=== PATIENT | female | born 1995 | race Caucasian/White ===

== ENCOUNTER 2020-06-15 08:16 | Emergency (ER) | payer OTHER, SELFPAY ==
[2020-06-15 08:17] VITALS: BP 139/59; PULSE 76; RESP 16; TEMP 36.3; O2SAT 99; BMI 28.0
--- NOTE | 2020-06-15 08:45 | VDLE_ITS ---
Reason For Study: Swelling Procedure LEFT Exam performed portable in ED. GSV is normal. A preliminary report was called and/or faxed CFV is compressible, spontaneous, phasic, to [place]. competent, and demonstrates normal augmentation. FV is compressible, spontaneous, phasic, competent and demonstrates normal augmentation. POP V is compressible, spontaneous, phasic, competent and demonstrates normal augmentation. T/P Trunk is compressible. PTV is compressible. LT PerV is compressible. Interpretation Summary There is no evidence of left lower extremity deep vein thrombosis. Left great saphenous vein appears patent and compressible segmentally. Ordering Physician: Lázaro Caba Performed By: Alis Holland RVT
--- NOTE | 2020-06-15 08:46 | ED.VISSUMM ---
- ER Visit Summary Date of Service: 06/15/20 Chief Complaint: [] History of Present Illness: The patient is a 25 F [] Physical Examination: [] Test Results: [] Emergency Department Course and Treatment: [] Treatment Plan: [] Disposition: [] Impression: [] This note was generated with [employer] dictation software. It may contain incorrect words, spelling, and punctuation that were not noted in review of the chart prior to signing
--- NOTE | 2020-06-15 09:15 | ED.VIS.GEN ---
History of Present Illness Chief Complaint: Numb/Ting Narrative: 25-year-old female with no reported medical problems presents with intermittent numbness and tingling of her left upper extremity and left lower extremity. She states that do not coincide together. She states she does work out regularly. She is also a nurse. She notes that the tingling in her left upper extremity is only in the mid forearm and its intermittent. It does not hurt. She is had no trauma. It is not numb or tingling today. There is no rash that she is noted. Her left lower extremity is tender to palpation behind the knee and into the upper calf. She does not note any swelling a but usually wears leg compression. DVT/PE risk factors. No history of DVT/PE. Past Medical History - Allergies and Home Meds Allergies/Adverse Reactions: Allergies No Known Allergies Allergy (Verified 06/15/20 08:18) Primary Care Physician: Care Physician,No Primary [Primary Care Provider] - Prior records reviewed: Yes Past Medical History: None Smoking Status: Never smoker Review of Systems General: Denies: Chills, Fever, Sweats Eyes: Denies: Visual changes - bilaterally, Diplopia ENT: Denies: Rhinorrhea, Sore throat Cardiovascular: Denies: Chest pain, Palpitations Respiratory: Denies: Dyspnea, Cough, Dyspnea on exertion Gastrointestinal: Denies: Abdominal pain, Nausea, Vomiting, Diarrhea, Melena, Hematochezia Musculoskeletal: Reports: Extremity Pain - Pain and swelling behind the left knee Skin: Denies: Rash, Abscess Neurological: Reports: - - Mitten tingling sensation behind the left knee and left lower leg as well as the left upper extremity on the mid forearm Physical Exam Vital Signs/Narrative: Vital Signs Temp Pulse Resp BP Pulse Ox 06/15/20 08:17 97.3 F L 76 16 139/59 H 99 General: Well nourished, No Acute Distress Head: Normocephalic Cardiovascular: Regular rate Respiratory: No distress Extremities: - - Tenderness to palpation posterior to the left knee. There is no rash or bruising. The calf compartments are soft. Motor is intact throughout. Left upper extremity examination shows full range of motion at the left shoulder left elbow left wrist without limitation or pain elicited. Sensation is intact. Roopa and brachial pulse 2+. Desmond's test normal. Negative Tinel sign. Skin: Normal color, No rash Neurological: Alert, Oriented x3 Psychological: Normal affect Diagnostic/Tx/Re-eval - Medical Decision Making Presents with intermittent paresthesias in the left upper extremity left forearm as well as pain and swelling as well as some numbness and tingling in the left lower extremity mostly behind the knee. On physical exam her left upper extremity has normal motor and sensation. She is not having any symptoms in this arm. She does have some tenderness behind her left knee and into her left calf. Her compartments are soft. Patient is concerned for DVT. Ultrasound was performed which shows no DVT or other acute process. Patient was a work note for today which was provided. Patient is discharged home in stable condition Impression: #1 left knee pain #2 left leg paresthesia 3. Left arm paresthesia ED Disposition - Plan for ED Patient: Disposition: Home or Assisted Living Instructions: ED Muscle Pain Leg Cramps, ED Paraesthesias Referrals: Care Physician,No Primary [Primary Care Provider] -
[2020-06-15 10:00] VITALS: BP 112/74; PULSE 65; RESP 20
== END 2020-06-15 10:01 | disposition home or self-care (01) ==
PROVIDERS: Emergency Provider Student in an Organized Health Care Education/Training Program
DX: M25.562 Pain in left knee (principal); R20.2 Paresthesia of skin; R20.0 Anesthesia of skin
CPT/HCPCS: 93971; 99283; A4216

== ENCOUNTER → 2021-05-09 10:50 | Outpatient (CLI) | payer MEDICARE, SELFPAY | DX: Z03.818 Encounter for observation for suspected exposure to other biological agents ruled out (principal) | CPT/HCPCS: 87635; U0005; U0003 ==

== ENCOUNTER 2024-02-28 19:13 | Inpatient (IN) | payer MEDICAID, SELFPAY ==
[2024-02-28 19:27] VITALS: BP 138/90; PULSE 82; RESP 16; TEMP 37.4
[2024-02-28] MEDS: Lactated Ringers 1,000 ML 50 ML IV (19:30)
[2024-02-28 19:32] VITALS: BMI 34.6
[2024-02-28 19:49] LABS: Absolute Lymphocyte Count 1.96 X10^3/uL (0.83-4.51); Absolute Neutrophil Count 6.3 X10^3/uL (2.0-7.7); Basophil# 0.05 X10^3/uL; Basophil% 0.6 % (0-1); Eosinophil# 0.06 X10^3/uL; Eosinophils% 0.7 % (0-5); Hematocrit 30.6 % (37-47); Hemoglobin 10.5 g/dL (12.0-15.0); Lymphocyte # 1.96 X10^3/ul (0.83-4.51); Lymphocyte % 21.7 % (19-41); Mean Corp Hgb Conc 34.3 g/dL (32-36); Mean Corpuscular Hgb 28.9 pg (27.0-32.0); Mean Corpuscular Volume 84.3 fL (81-99); Monocyte% 6.6 % (0-10); NRBC Flagged by Analyzer 0 % (0-5); Neutrophil # 6.34 X10^3/uL (2.7-7.7); Neutrophil % 70.1 % (47-70); Platelet Count 250 K/mm3 (150-450); RBC Distribution Width CV 13.9 % (11.6-14.6); Red Blood Count 3.63 M/mm3 (4.2-5.4)
--- NOTE | 2024-02-28 20:10 | PCM.HP.OB ---
HPI - General General Date of Admission: 02/28/24 HPI Narrative YANET MONDRAGON, is a 28 F who presents at 41 weeks, with LAURA 02/21/24 for postdates induction of labor. Maternal Data Information LAURA Calculator Estimated Delivery Date Method Current WG Current Estimate 02/21/24 Manual 41w 0d PFSH PFSH Home Medications vit no.133-ferrous fumarate 28 mg-folic acid 800 mcg tablet () 1 tab PO DAILY 02/28/24 [History Last Taken 02/28/24 08:30 1 TAB] Allergy/AdvReac Type Severity Reaction Status Date / Time No Known Allergies Allergy Verified 02/28/24 19:29 Surgical History (Updated 02/28/24 @ 19:35 by Makenna Canales) History of surgery Social History Smoking Status: Never smoker History Elective abortions Hx Para 0 Spontaneous abortions Hx # Term Pregnancies Ectopic pregnancies Hx # Pregnancies Multiple births # of living children NST FHR Rate Baby A Baseline: 130 Variability:: Moderate Accelerations:: 15 x 15 Decelerations:: None FHR Category:: Category I Uterine Activity:: None ROS Constitutional Constitutional: Reports systems reviewed and no addt'l complaints, except as documented; Denies headache(s) Eyes Eyes: Denies acute decrease in peripheral vision, blurry vision or change in vision ENT HEENT: Reports systems reviewed and no addt'l complaints, except as documented Cardiovascular Cardiovascular: Denies chest pain or dizziness Respiratory/Chest Respiratory/Chest: Denies cough, dyspnea, dyspnea on exertion, shortness of breath at rest or shortness of breath with exertion Gastrointestinal Gastrointestinal: Denies abdominal pain, diarrhea, nausea or vomiting Genitourinary Genitourinary: Denies abdominal discomfort Musculoskeletal Musculoskeletal: Denies limited range of motion Integumentary Integumentary: Reports systems reviewed and no addt'l complaints, except as documented Neurologic Neurologic: Reports systems reviewed and no addt'l complaints, except as documented Psychiatric Psychiatric: Reports systems reviewed and no addt'l complaints, except as documented Endocrine Endocrinology: Reports systems reviewed and no addt'l complaints, except as documented Hematologic/Lymphatic Hematologic/Lymphatic: Reports systems reviewed and no addt'l complaints, except as documented Allergic/Immunologic Allergic/Immunologic: Reports systems reviewed and no addt'l complaints, except as documented Vital Signs Vital Signs Vital Signs: 02/28/24 19:27 02/28/24 19:27 02/28/24 19:27 Temperature Temperature Source Temporal Pulse Rate 82 Respiratory Rate Blood Pressure 138/90 H BP Systolic 138 BP Diastolic 90 02/28/24 19:27 02/28/24 19:27 Temperature 99.3 F H Temperature Source Pulse Rate Respiratory Rate 16 Blood Pressure BP Systolic BP Diastolic Weight Weight: 195 lb 5.273 oz Body Mass Index (BMI) 34.6 Physical Exam Const alert and oriented x3 General Appearance: cooperative Orientation / Consciousness: awake, oriented to person, oriented to place and oriented to time Exam Limitations: no limitations HEENT normocephalic Head and Scalp: normal to inspection, normocephalic and atraumatic Face and Sinus: normal facial exam Eyes General Eye: normal appearance of both eyes Neck full ROM Chest Chest: symmetrical chest wall rise Resp normal respiratory effort and normal air movement Auscultation: clear to auscultation bilaterally Cardio regular rate, regular rhythm, S1 normal heart sound, S2 normal heart sound, no murmurs, no rub, no gallops and no clicks GI normal to inspection, nondistended, normoactive bowel sounds and non-tender appearance of the vagina normal Narrative: 0.5cm/50%/-2. Sanchez catheter instilled through cervix with stylus and instilled with 30ml NS. Patient tolerated well. Bladder / Kidney Exam: no CVA tenderness Back/Spine normal ROM Extremity normal to inspection and full ROM Skin no rashes or lesions noted Neuro oriented x3, CN's II-XII intact bilaterally and moves all extremities Sensorium / Orientation: awake, alert and oriented to person Motor Exam: clonus absent Deep Tendon Reflexes: Rt Patellar (L4): 2+ and Lt Patellar (L4): 2+ Labs Labs Labs: Blood Type Pending Antibody Screen NEGATIVE Hct 30.6 % (37-47) L Hgb 10.5 g/dL (12.0-15.0) L Syphilis Total Ab Pending GBS negative RPR non reactive GC/CT negative HIV negative HBsAG negative HepC negative Rubella equivocal Assessment & Plan (1) Post-dates : (2) Encounter for induction of labor: (3) 41 weeks gestation of : PLAN: Plan 1) Admit to labor and delivery 2) Routine labs 3) Sanchez with PO cytotec 4) Pain management upon request 5) collaborative physician, notified of patient status and of above assessment and plan.
[2024-02-28] MEDS: 0.9% Normal Saline Single 100 ML IV.SOLN. INTRA-UTER (20:33)
[2024-02-28 21:17] LABS: Syphilis Antibodies Non-reactive
[2024-02-28] MEDS: miSOPROStol 25 MCG TABLET PO (22:30)
[2024-02-28 22:31] VITALS: RESP 16; TEMP 36.8
[2024-02-28 22:32] VITALS: BP 133/80; PULSE 67; O2SAT 99
[2024-02-29] VITALS (91 sets, daily range): BP systolic 102–170; BP diastolic 53–95; PULSE 58–120; RESP 14–16; TEMP 36.3–37.9; O2SAT 84–100
--- NOTE | 2024-02-29 | PLAC_PTH ---
PATIENT: YANET MONDRAGON LOC: [facility] U#:[id number] AGE/SX: 28/F ROOM: [facility] RE02/28/[address]: Dr. Latia To MD : 1995 BED: 1 DIS: 03/02/2024 SPEC #: [id number] RECD: 03/01/24 08:01 STATUS: KALYN REKorey #: [id number] DARYA: 02/29/24 00:[address]: Tracey Aclala DEPT: SURGICAL PATHOLOGY RECD BY: Heron Perez ENTERED: 03/01/24 08:01 SP TYPE: PLACENTA OTHR DR: No Primary Care Phys Tissues: Placenta, NOS Procedures: Surgery Specimen Level V HEADER OPERATION: section PRE-OP DIAGNOSIS: Delivery TISSUE SUBMITTED: Placenta MICROSCOPIC DIAGNOSIS Placenta: Placental disc - third trimester placenta (486 gm). - Marked acute vasculitis of subamniotic blood vessels. Membranes - Marked acute chorioamnionitis. Umbilical cord - three blood vessels and marked acute funisitis. SJ: 03/03/24 MICROSCOPIC DESCRIPTION Slides are reviewed. GROSS DESCRIPTION SPECIMEN: PLACENTA / CLINICAL INFORMATION: A. Weight: 3.345 kg B. Gestational Age: 41 weeks C. Sex: Male PLACENTAL WEIGHT (POST FIXATION): 486 gm PLACENTAL DIMENSIONS: 17.0 x 15.0 x 4.0 cm PLACENTAL SHAPE: Usual ovoid PLACENTAL WEIGHT FOR GESTATIONAL AGE: Within 10-99th percentile MEMBRANES - Present A. Insertion: Marginal B. Site of rupture from edge: 7.0 cm from the margin of placental disc C. Color of membrane: Sprague-greenish and mucoidy, consistent with meconium staining D. Abnormalities: None UMBILICAL CORD - Present A. Color: Sprague-scott B. Insertion: Paracentral C. Length: 34.0 cm D. Diameter: 1.5 cm E. Number of vessels: Three F. Abnormalities: None PLACENTAL DISC - Present A. Color of surface: Sprague-scott B. surface abnormalities: None C. Maternal cotyledons: Intact with minimal tears D. Attached retro placental clot: No clot E. Cut surface: Dark red and spongy F. Lesions: None G. Separate clot: Absent SECTIONS SUBMITTED: 1. Membrane roll 2. Cord, maternal end 3. Cord, end 4. Placental disc, and maternal surfaces 5. Placental disc, and maternal surfaces 6. Placental disc, and maternal surfaces / 03/02/2024 TC:2 CPT: 93594
[2024-02-29] MEDS: Oxytocin 15 Units/NS 250ml 15 UNITS/250 ML IV.SOLN 2 UNITS IV (03:00)
[2024-02-29] MEDS: LACTATED RINGERS 500 ML 999 ML IV ×4 (07:10→20:05)
[2024-02-29] MEDS: fentaNYL-bupivacaine (epidural) 100 ML BAG EPIDURAL ×3 (07:32→20:39)
[2024-02-29] MEDS: Lactated Ringers 1,000 ML 200 ML IV ×3 (11:09→22:57)
[2024-02-29] MEDS: Ondansetron 4 MG/2 ML Vial IV (12:11)
--- NOTE | 2024-02-29 12:58 | PCM.PN.OB ---
Subjective Subjective Small area of pain despite epidural in RLQ. Unable to pass IUP. 4 cm. Pit is off currently because of pain. CAT 1-2 Objective Data Objective Data Vital Signs: Vital Signs Temp Pulse Resp BP Pulse Ox 97.9 F 68 16 148/91 H 98 02/29/24 11:51 02/29/24 12:39 02/29/24 12:39 02/29/24 12:39 02/29/24 12:39 Weight: 88.6 kg Body Mass Index (BMI) 34.6 Intake & Output: Intake and Output for Last 24 Hours 02/27/24 02/28/24 02/29/24 23:59 23:59 23:59 Intake Total 50 / 50 1277.57 / 1277.57 Output Total 550 / 550 Balance 50 / 50 727.57 / 727.57 Lab / Micro Data 02/28/24 19:30 Labs: Laboratory Results - last 24 hr 02/28/24 19:30: WBC 9.0, RBC 3.63 L, Hgb 10.5 L, Hct 30.6 L, MCV 84.3, MCH 28.9, MCHC 34.3, RDW Std Deviation 43.0, RDW Coeff of Bryanna 13.9, Plt Count 250, MPV 13.0 H, Immature Gran % (Auto) 0.300, Neut % (Auto) 70.1 H, Lymph % (Auto) 21.7, Ziebach % (Auto) 6.6, Eos % (Auto) 0.7, Baso % (Auto) 0.6, Absolute Neuts (auto) 6.3, Absolute Lymphs (auto) 1.96, Nucleated RBC % 0, Syphilis Total Ab Non-reactive, Antibody Screen NEGATIVE Assessment & Plan (1) 41 weeks gestation of : (2) Encounter for induction of labor:
--- NOTE | 2024-02-29 23:01 | NURSING ---
per ludy RN, she DC ignacio cath around 1729 due to pt pain. this RN replaced ignacio cath to drain bladder per provider request at 2052. blood tinged urine draining. pt tolerating cath at this time.
--- NOTE | 2024-02-29 23:17 | PCM.PN.OB ---
Subjective Subjective Cervix unchanged. 5/80/-3. Contractions q2-3. Patient declines further trial of labor Consent for primary c/s reviewed risks and benefits of c/s vs continue labor. Objective Data Objective Data Vital Signs: Vital Signs Temp Pulse Resp BP Pulse Ox 99.8 F H 114 H 16 141/77 H 98 02/29/24 22:51 02/29/24 22:51 02/29/24 22:51 02/29/24 22:51 02/29/24 22:50 Weight: 88.6 kg Body Mass Index (BMI) 34.6 Intake & Output: Intake and Output for Last 24 Hours 02/27/24 02/28/24 02/29/24 23:59 23:59 23:59 Intake Total 50 / 50 5036.26 / 5036.26 Output Total 900 / 900 Balance 50 / 50 4136.26 / 4136.26 Lab / Micro Data 02/28/24 19:30 NST FHR Rate Baby A Baseline: 155 Variability:: Moderate Accelerations:: 15 x 15 Decelerations:: Variable FHR Category:: Category II Assessment & Plan (1) 41 weeks gestation of : (2) Encounter for induction of labor: (3) Failed induction of labor:
[2024-02-29] MEDS: Sodium Citrate/Citric Acid 30 ML UDC PO (23:18)
[2024-02-29] MEDS: Acetaminophen 500 MG Tablet PO (23:18)
[2024-02-29] MEDS: Cefazolin 2 GM in 0.9% Normal Saline (100mL Bag) 100 ML IV (23:50)
[2024-02-29] MEDS: Azithromycin 500 MG in Dextrose 5%-Water (250mL Bag) 250 ML 250 MG IV (23:50)
[2024-03-01] VITALS (25 sets, daily range): BP systolic 114–154; BP diastolic 53–100; PULSE 83–104; RESP 12–19; TEMP 36.5–37.7; O2SAT 91–97
[2024-03-01] MEDS: Methylergonovine 0.2 MG/ML Ampul IM (00:30)
[2024-03-01] MEDS: Oxytocin 15 Units/NS 250ml 15 UNITS/250 ML IV.SOLN 83 UNITS IV (00:41)
--- NOTE | 2024-03-01 01:06 | EX.PCM.OBRPT ---
Assessment & Plan (1) Failed induction of labor: QUALIFIERS: Failed induction of labor type: unspecified Qualified Code(s): O61.9 - Failed induction of labor, unspecified (2) 41 weeks gestation of : (3) Encounter for induction of labor: (4) Delivery by section: Maternal Data Information LAURA Calculator Estimated Delivery Date Method Current WG Current Estimate 02/21/24 Manual 41w 2d Final LAURA: 02/21/24 Gestational age: 41+2 Doctor Who Attended Delivery: Nolan Dewey Details Operative Information Date of Procedure: 02/29/24 Pre-Operative Diagnosis: IOL at 41 weeks, Failure to progress Post-Operative Diagnosis: Same, meconium Indications for : Failure to Progress Indications Narrative: Sanchez bulb IOL. ROM with Sanchez placement. Progressed to 5 cm but made no further change. High station and meconium stained fluid. Difficult pain management with epidural. Redosed multiple times and replaced Classification: NEWTON Procedure Type: low transverse accounts adjustable clerk #1: Kami Raines Type of Anesthesia: Epidural and General Anesthesiologist: Bashir Joseph Antibiotic Given: Ancef 2 grams IV x1 and Zithromax 500 mg/5 mL X1 Drain: Sanchez to straight drain Estimated Blood Loss: 500 cc Fluids Replaced: 1000 Procedure Start Time: 23:52 Procedure Stop Time: 00:35 Time of Delivery: 23:54 Findings Description of Procedure: Patient consented to primary c/s for failure to progress. She was taken to the OR with epidural and Sanchez in place. She was placed in a dorsal supine position with a leftward tilt. A vaginal prep and abdominal prep was performed. She was draped in the normal sterile fashion. Her anesthesia however was not adequate when tested with an Allis clamp. She was then placed under general anesthesia. A Pfannenstiel incision was made with the scalpel and carried down to the underlying fascia. The fascia was incised and in the midline and extended laterally with mayor scissors. The muscle were divided in the midline. The peritoneum was entered bluntly. A bladder blade was placed and a low transverse incision made in the lower uterine segment. The incision was extended bluntly. A copious amount of meconium was found. The head was elevated to the incision and delivered without difficulty. Followed by the rest of the infants body. The was stimulated. The cord doubly clamped and cut. And the handed to the awaiting nurse. Pitocin was started and the placenta delivered with massage and manual traction. The incision was repaired with 0-Vicryl and 1-0 Vicryl in running locked fashion. The pelvis was cleared of clot and debris. The uterus was returned to the abdomen. The peritoneum was closed with 3-0 Monocryl. The fascia was closed with 0-Vicryl. The subq was reapproximated with 2-0 Monocryl. The skin was closed with 4-0 Vicryl. All sponge lap and need counts were correct Presentation: Positive for Vertex and LOP Amniotic Membrane Rupture Type: Spontaneous Time of Membrane Ruptured: 202402/28/24 Amniotic Fluid Description: Thick meconium Placental Delivery Description: Spontaneous Placenta Disposition: [facility] Specimen(s) Sent to Pathology: placenta Cord Vessel Description: 3 Vessels Cord Entanglement: None Infant A Gender: Male (1 minute): 2 (5 minute): 7 (9 at 10 minutes) Delayed Cord Clamping: No
[2024-03-01] MEDS: Ketorolac 30 MG/ML Syringe IV ×3 (01:48→17:33)
[2024-03-01] MEDS: 0.9% Saline Lock 10 ML Syringe IV ×2 (01:48→17:34)
--- NOTE | 2024-03-01 02:34 | NURSING ---
pt vitals prior to being taken back to the OR are as follows 2251 02/29/24: 141/77, HR 114, resp 16, temp 99.8, pulse ox 98%.
--- NOTE | 2024-03-01 02:47 | NURSING ---
epidural cath removed. blue tip intact.
[2024-03-01 03:00] LABS: Pathology Specimen OB SEE PATHOLOGY REPORT
[2024-03-01] MEDS: Lactated Ringers 1,000 ML 100 ML IV (04:31)
[2024-03-01] MEDS: Acetaminophen 500 MG Tablet 1000 MG PO ×4 (05:06→23:39)
--- NOTE | 2024-03-01 07:30 | NURSING ---
dr to updated on pt condition. pt urine output after recovery was approx 75 cc. this RN went to empty ignacio prior to next toradol dose and urine output was <30cc/hr and only 50cc and blood tinged. RN encouraged oral hydration. LR going at 100cc/hr. Dr To states to hold toradol dose and flush ignacio cath. no bolus at this time. encourage PO fluids. give toradol when urine output meets standard. this RN gave report to kim . she is aware of plan of care.
--- NOTE | 2024-03-01 08:56 | PN.OBGYN_ITS ---
Subjective Subjective Doing well per patient and nursing staff. Limited ambulation, SCDs were in place and off at this time. Taking PO without difficulty. Ignacio in place and passing flatus. Pain controlled. , services for assistance. Denies headache, visual changes, chest pain, shortness of breath, leg pain or increased bleeding. Lochia normal. Objective Data Objective Data Vital Signs: Vital Signs Temp Pulse Resp BP Pulse Ox O2 Del Method 98.3 F 85 16 125/71 H 93 Room Air 03/01/24 07:10 03/01/24 07:10 03/01/24 07:10 03/01/24 07:10 03/01/24 07:10 03/01/24 07:10 Oxygen Delivery Method Room Air Weight: 195 lb 5.273 oz Body Mass Index (BMI) 34.6 Intake & Output: Intake and Output for Last 24 Hours 02/28/24 02/29/24 03/01/24 23:59 23:59 23:59 Intake Total 50 / 50 5165.68 / 5165.68 615 / 615 Output Total 900 / 900 1600 / 1600 Balance 50 / 50 4265.68 / 4265.68 -985 / -985 Lab / Micro Data 02/28/24 19:30 ROS Constitutional Constitutional: Reports systems reviewed and no addt'l complaints, except as documented; Denies headache(s) Eyes Eyes: Denies acute decrease in peripheral vision, blurry vision or change in vision ENT HEENT: Reports systems reviewed and no addt'l complaints, except as documented Cardiovascular Cardiovascular: Denies chest pain or dizziness Respiratory/Chest Respiratory/Chest: Denies cough, dyspnea, dyspnea on exertion, shortness of breath at rest or shortness of breath with exertion Gastrointestinal Gastrointestinal: Denies abdominal pain, diarrhea, nausea or vomiting Genitourinary Genitourinary: Denies abdominal discomfort Musculoskeletal Musculoskeletal: Denies limited range of motion Integumentary Integumentary: Reports systems reviewed and no addt'l complaints, except as documented Neurologic Neurologic: Reports systems reviewed and no addt'l complaints, except as d ocumented Psychiatric Psychiatric: Reports systems reviewed and no addt'l complaints, except as documented Endocrine Endocrinology: Reports systems reviewed and no addt'l complaints, except as documented Hematologic/Lymphatic Hematologic/Lymphatic: Reports systems reviewed and no addt'l complaints, except as documented Allergic/Immunologic Allergic/Immunologic: Reports systems reviewed and no addt'l complaints, except as documented Physical Exam Const alert and oriented x3 General Appearance: cooperative Orientation / Consciousness: awake, oriented to person, oriented to place and oriented to time Exam Limitations: no limitations HEENT normocephalic Head and Scalp: normal to inspection, normocephalic and atraumatic Face and Sinus: normal facial exam Eyes General Eye: normal appearance of both eyes Neck full ROM Chest Chest: symmetrical chest wall rise Resp normal respiratory effort and normal air movement Auscultation: clear to auscultation bilaterally Cardio regular rate, regular rhythm, S1 normal heart sound, S2 normal heart sound, no murmurs, no rub, no gallops and no clicks GI non-tender GI Narrative: dressing dry and intact Auscultation: hypoactive bowel sounds appearance of the vagina normal Bladder / Kidney Exam: no CVA tenderness Back/Spine normal ROM Extremity normal to inspection and full ROM Skin no rashes or lesions noted Neuro oriented x3 and moves all extremities Sensorium / Orientation: awake, alert and oriented to person Motor Exam: clonus absent Deep Tendon Reflexes: Rt Patellar (L4): 2+ and Lt Patellar (L4): 2+ Assessment & Plan (1) Delivery by section: (2) Failed induction of labor: QUALIFIERS: Failed induction of labor type: unspecified Qualified Code(s): O61.9 - Failed induction of labor, unspecified (3) Lactating mother: PLAN: Plan 1) POD #1 primary LTCS 2) Vitals stable 3) I&O, d/c ignacio 4) Ambulation 5) 6) Planning D/C home tomorrow
[2024-03-01] MEDS: LACTATED RINGERS 500 ML 999 ML IV (10:02)
--- NOTE | 2024-03-01 11:00 | NURSING ---
Pt. noted with pulse ox 90-92% while sleeping. Placed on 2 L O2 per nasal canula and notified Dr. Kim in anesthesia. Plan to continue monitoring x 12 additional hours per pulse ox.
[2024-03-01] MEDS: Ibuprofen 600 MG Tablet PO (23:39)
[2024-03-02 01:30] VITALS: BP 120/80; PULSE 74; RESP 16; TEMP 36.7; O2SAT 98
[2024-03-02] MEDS: 0.9% Saline Lock 10 ML Syringe IV ×2 (05:45→09:44)
[2024-03-02] MEDS: Ibuprofen 600 MG Tablet PO (05:45)
[2024-03-02] MEDS: Acetaminophen 500 MG Tablet 1000 MG PO (05:45)
[2024-03-02 06:42] LABS: Hematocrit 23.9 % (37-47); Hemoglobin 7.9 g/dL (12.0-15.0); Mean Corp Hgb Conc 33.1 g/dL (32-36); Mean Corpuscular Hgb 28.5 pg (27.0-32.0); Mean Corpuscular Volume 86.3 fL (81-99); Mean Platelet Vol. 12.4 fl (6.2-12.0); Platelet Count 205 K/mm3 (150-450); RBC Distribution Width CV 14.6 % (11.6-14.6); RBC Distribution Width SD 45.6 fl (35.1-43.9); Red Blood Count 2.77 M/mm3 (4.2-5.4); White Blood Count 18.7 K/mm3 (4.4-11.0)
[2024-03-02 07:55] VITALS: BP 98/72; PULSE 86; RESP 16; TEMP 36.8; O2SAT 97
--- NOTE | 2024-03-02 09:13 | PCM.DC.SUM ---
Providers Date of Admission: 02/28/24 Primary Care Physician: Rekha Primary Care Phys Reason For Visit: INDUCTION Diagnosis Discharge Diagnosis (1) Delivery by section: Status: Acute (2) Failed induction of labor: Status: Acute Code(s): O61.9 - Failed induction of labor, unspecified Qualifiers: Failed induction of labor type: unspecified Qualified Code(s): O61.9 - Failed induction of labor, unspecified (3) Lactating mother: Status: Acute Code(s): Z39.1 - Encounter for care and examination of lactating mother Plan POD 2 Primary C/S Pain control HGB 7.9- patient is asymptomatic but will give dose of IV iron D/C home with follow up in office next week Medications at Discharge Home Medications vit no.133-ferrous fumarate 28 mg-folic acid 800 mcg tablet () 1 tab PO DAILY 02/28/24 acetaminophen 500 mg tablet 1,000 mg (2 x 500 mg) PO Q6H #0 tabs 03/02/24 ibuprofen 600 mg tablet 600 mg PO Q6H #0 tabs 03/02/24 sennosides 8.6 mg-docusate sodium 50 mg tablet (Stool Softener-Stimulant Laxative) 1 - 2 tab PO DAILY #0 tabs 03/02/24 Hospital Course Operations section Procedures None Summary of Care Provided Minutes Spent on Discharge: 20 Hospital Course: Patient had primary section. Hospital course was uneventful. Physical Exam Narrative Patient seen at bedside. Denies pain. Ambulating and voiding. Passing flatus. Denies headache, dizziness, SOB, or CP. with minimal support. Desires discharge home. Const alert and no apparent distress General Appearance: cooperative and comfortable Exam Limitations: no limitations HEENT normocephalic Eyes General Eye: normal appearance of both eyes Neck full ROM General: normal visual inspection Chest Chest: symmetrical chest wall rise Resp normal respiratory effort and normal air movement Effort and Inspection: symmetric chest movement Auscultation: clear to auscultation bilaterally Cardio regular rate and regular rhythm GI normal to inspection, nondistended, normoactive bowel sounds Back/Spine normal ROM Extremity full ROM and no calf tenderness General Extremity: normal exam except as noted Skin no rashes or lesions noted Neuro CN's II-XII intact bilaterally Psych mental status grossly normal Weight / BMI Weight Weight: 195 lb 5.273 oz Body Mass Index (BMI) 34.6 ABG / Lab / Microbiology Data 03/02/24 05:54 Laboratory: Laboratory Results - last 24 hr 03/02/24 05:54: WBC 18.7 H, RBC 2.77 L, Hgb 7.9 L, Hct 23.9 L, MCV 86.3, MCH 28.5, MCHC 33.1, RDW Std Deviation 45.6 H, RDW Coeff of Bryanna 14.6, Plt Count 205, MPV 12.4 H D/C Instructions Discharge Diet: No restrictions May resume sexual activity in: 6-8 weeks Weight Bearing Status: Weight bearing as tolerated Lifting Restrictions: 20 lbs Call your doctor if your incision/area has: Continuous Slow Oozing, Increased Pain/ Swelling, Increased Redness, Foul Smelling Discharge and Swelling at the incision site Call your doctor if you observe: Fever of 101 or Higher, Inability to urinate, Using more than 1 pad per hour, Shortness of breath, Chest pain, Calf discomfort and Uncontrolled pain Remove Dressing in: 5 days Cleanse incision/area with: Soap & Water and Keep Dressing Clean & Dry Please Follow Up With: Elba Guerrero CNM When: 1 week in office for incision check or sooner if needed 6 weeks Meaningful Use Info Meaningful Use Meaningful Use Diagnoses (Choose all that apply): None applicable Ischemic Stroke Statin Dosing Therapy Reference: STATIN DOSE THERAPY REFERENCE: * Patients > 75 years receive moderate or high dose statin therapy. * Patients 75 years or YOUNGER should receive HIGH intensity statin dose unless contraindicated. You will be required to document reason for non-treatment if statin daily dose does not meet guidelines. HIGH DOSE STATIN THERAPY DAILY Atorvastatin > than or = to 40 mg Rosuvastatin > than or = to 20 mg Amlodipine + Atorvastatin > than or = to 2.5/40 mg Ezetimibe + Simvastatin 10/80 mg Simvastatin 80mg Discharge Plan Admission Admit Date/Time: 02/28/24 19:13 Primary Reason for Your Visit: Labor and Delivery Attending Provider: Tracey Alcala Primary Care Provider: Care Physician,No Primary Discharge Orders/Prescriptions Prescriptions: New sennosides-docusate sodium [Stool Softener-Stimulant Laxat] 8.6-50 mg Tablet 1 - 2 tab PO DAILY Qty: 0 0RF acetaminophen 500 mg Tablet 1,000 mg PO Q6H Qty: 0 0RF ibuprofen 600 mg Tablet 600 mg PO Q6H Qty: 0 0RF Continued 28-800 mg-mcg tablet 1 tab PO DAILY Referrals / Follow Up: Elba Guerrero CNM [Med Staff - [facility]] - Care Physician,No Primary [Primary Care Provider] - Disposition Disposition (needs filled in before D/C Order can be placed): Home, Self Care
[2024-03-02] MEDS: Iron Sucrose Complex 200 MG in 0.9% Normal Saline (100mL Bag) 100 ML 220 MG IV (09:44)
[2024-03-02] MEDS: Senna/Docusate Sodium 1 Tablet PO (10:16)
== END 2024-03-02 12:50 | disposition home or self-care (01) | DRG 540 ==
PROVIDERS: Advanced Practice Midwife; Admitting Provider Obstetrics & Gynecology; Referring Provider Obstetrics & Gynecology; Visit Provider Obstetrics & Gynecology
DX: O76 Abnormality in fetal heart rate and rhythm complicating labor and delivery (principal); O41.1230 Chorioamnionitis, third trimester, not applicable or unspecified; O32.4XX0 Maternal care for high head at term, not applicable or unspecified; O48.0 Post-term pregnancy; O61.0 Failed medical induction of labor; O77.0 Labor and delivery complicated by meconium in amniotic fluid; Z37.0 Single live birth; Z3A.41 41 weeks gestation of pregnancy
CPT/HCPCS: 59025; 59050; 85025; 85027; 86780; 86850; 86900; 86901; 88307; 99221; J1756; J7120; A4216; G0378; J2405; J3490